=== PATIENT | male | born 2000 | race Two or more races ===

== ENCOUNTER 2022-01-27 23:53 | Emergency (ER) | payer BC, SELFPAY ==
[2022-01-28 00:03] VITALS: BP 119/82; PULSE 87; RESP 16; TEMP 37.2; O2SAT 99; BMI 23.1
--- NOTE | 2022-01-28 00:18 | ED_ITS ---
HPI - Psych General Chief Complaint: Psychiatric Symptoms Stated Complaint: si section 12 Time Seen by Provider: 01/28/22 00:10 Source: patient and EMS Mode of arrival: EMS Limitations: no limitations History of Present Illness HPI Narrative: Patient comes to the emergency room complaining of suicidal ideation. Patient states she has history of depression OCD, states she is compliant with her Wellbutrin. Patient states that earlier today, she was with a friend, patient was looking up on the Internet the lethal dose of acetaminophen. Patient states she has had suicidal ideation in the past, has done minor things to hurt herself such as cutting but nothing serious. Patient denies homicidal ideation. Of note, patient prefers male pronouns and they/them. Related Data Allergies Allergy/AdvReac Type Severity Reaction Status Date / Time No Known Allergies Allergy Verified 01/28/22 00:18 Review of Systems Review of Systems: Constitutional : No Weight loss, No Fever, No Chills, No Night Sweats, No Fatigue, No Malaise ENT/Mouth : No Hearing loss, No Ear Pain, No Nasal Congestion, No Sinus Pain, No Hoarseness, No sore throat, No Rhinorrhea, No Swallowing Difficulty Eyes: No Eye Pain, No Swelling, No Redness, No Foreign Body, No Discharge, No Vision Changes Cardiovascular : No Chest Pain, No SOB, No Dyspnea on Exertion, No Orthopnea, No Edema, No Palpitations Respiratory : No Cough, No Sputum, No Wheezing, No Smoke Exposure, No Dyspnea Gastrointestinal : No Nausea, No Vomiting, No Diarrhea, No Constipation, No abdominal Pain, No Hematochezia, No Melena Genitourinary : no irregular bleeding, No Dysuria, No Urinary Frequency, No Hematuria, No Urinary Incontinence, No Urgency, No Flank Pain, No Urinary Flow Changes, No Hesitancy Musculoskeletal : No joint pain, No Myalgias, No Joint Swelling Skin : No Skin Lesions, No rash Neuro : No Weakness, No Numbness, No Paresthesias, No Loss of Consciousness, No Dizziness, No Headache Psych : Patient denies feeling anxious, complaining of depression, having suicidal thoughts, no homicidal thoughts Heme/Lymph: No Bruising, No Bleeding,No Lymphadenopathy Endocrine : No Polyuria, No Polydipsia, No Temperature Intolerance PMFSH Past Medical History Medical History (Updated 01/28/22 @ 00:48 by Chelly Asencio MD) Major depression OCD (obsessive compulsive disorder) Physical Exam Vital Signs: Vital Signs: Last Vital Signs Temp 909 F H 01/28/22 00:31 Pulse 87 01/28/22 00:31 Resp 16 01/28/22 00:31 BP 119/82 01/28/22 00:31 Pulse Ox 99 01/28/22 00:31 BMI result Body Mass Index 23.1 Const: Other: Appearance: Alert. Oriented X3. No acute distress. Eyes: Pupils equal, round and reactive to light. ENT: Pharynx normal. Neck: Normal inspection. Neck supple. No lymph nodes noted. No crepitus CVS: Normal heart rate and rhythm. Pulses normal. Normal S1 and S2 Respiratory: No respiratory distress. Breath sounds normal. No Wheezing. No rales Abdomen: Soft and nontender. No rigidity. No distention. Skin: Skin warm and dry. Normal skin color. Normal skin turgor. Extremities: No lower extremity edema. No Lacerations. No Rash Neuro: Oriented X 3. No motor deficit. No sensory deficit. Moving all extremities. No slurred speech. CN 2 through 12 grossly intact Psych: calm, cooperative, normal affect Course Course Course Narrative: Behavioral health network consult pending. Physician observation started at 00:30 [facility] - Psych Lab Data Labs: Lab Results 01/28/22 01/28/22 Range/Units 00:26 00:26 Urine Color YELLOW Urine Appearance CLOUDY Urine pH 6.0 (5.0-8.0) Ur Specific [place] >= 1.030 H (1.005-1.025) Urine Protein NEG (NEG-TRACE) MG/DL Urine Glucose (UA) NEG (NEG) MG/DL Urine Ketones 5 (NEG) MG/DL Urine Blood NEG (NEG) Urine Nitrite NEG (NEG) Ur Leukocyte Esterase TRACE H (NEG) Urine RBC 0-2 (0) /HPF Urine WBC 5-9 H (0-4) /HPF Ur Squamous Epith Cells 3+ /LPF Urine Bacteria TRACE /LPF Urine Mucus 3+ /LPF Urine Test NEGATIVE (NEGATIVE) Discharge Plan Discharge Clinical Impression: Suicidal ideation Patient Disposition: Still a Patient
[2022-01-28 00:31] VITALS: BP 119/82; PULSE 87; RESP 16; TEMP 487.2; TEMP 909; O2SAT 99; BMI 23.1
[2022-01-28 00:34] LABS: Appearance Urine CLOUDY; Color Urine YELLOW; Glucose Urine UA NEG (NEG); Leukocyte Esterase Urine TRACE (NEG); Nitrite Urine NEG (NEG); Specific Gravity - Urine >= 1.030 (1.005-1.025); UACC Culture Trigger YES; Urine Blood NEG (NEG); Urine Ketones 5 MG/DL (NEG); Urine Protein NEG (NEG-TRACE)
[2022-01-28 00:36] LABS: UPreg QC Valid YES; Urine Pregnancy NEGATIVE (NEGATIVE)
[2022-01-28 00:42] LABS: Bacteria Urine TRACE /LPF; Mucus Urine 3+ /LPF; RBC Urine 0-2 /HPF (0); Squamous Epithelial Cell Urine 3+ /LPF
[2022-01-28 00:46] LABS: COVID-19 Test Negative (Negative)
[2022-01-28 01:04] LABS: Amphetamine Screen Urine Not Detected (Not Detect); Barbiturates, Urine Not Detected (Not Detect); Benzodiazepines Screen Urine Not Detected (Not Detect); Cannabinoid Screen Urine Not Detected (Not Detect); Cocaine Screen Urine Not Detected (Not Detect); Fentanyl, urine Not Detected (Not Detect); Opiate Screen Urine Not Detected (Not Detect); Phencyclidine Screen Urine Not Detected (Not Detect)
--- NOTE | 2022-01-28 05:18 | PC.ADMIT ---
PT brought in by EMS from [facility] due to SI with plan to OD on APAP. PT denies SI/HI and feels safe on unit. PT is being monitored by staff. PT is calm and cooperative answering questions appropriately.
--- NOTE | 2022-01-28 07:28 | PC.NURSE ---
patient appears to remain asleep at present, respirations are even and unlabored patient appears in no distress
--- NOTE | 2022-01-28 07:49 | PC.NURSE ---
Teri Hollis, Psychologist from [facility], would like to be contacted by [facility] when they come to evaluate the patient. She can be reached at [phone].
[2022-01-28] MEDS: buPROPion HCl XL 300 MG TAB.ER.24H PO (11:50)
== END 2022-01-28 17:07 | disposition other institution (70) ==
PROVIDERS: Emergency Provider Emergency Medicine
DX: F33.1 Major depressive disorder, recurrent, moderate (principal); R45.851 Suicidal ideations; Z20.822 Contact with and (suspected) exposure to COVID-19; Z79.899 Other long term (current) drug therapy
CPT/HCPCS: 80307; 81001; 81025; 87086; 87635; 99284

== ENCOUNTER 2023-01-01 19:04 | Inpatient (IN) | payer BC, SELFPAY ==
[2023-01-01 19:27] VITALS: BP 133/90; PULSE 84; RESP 16; TEMP 36.7; O2SAT 100; BMI 22.3
--- OUTSIDE RECORDS SUMMARY | 2023-01-01 19:50 | XMS_ITS | Continuity of Care Document ---
:2000 Author Organization [facility] nt Inpatient Psychiatry Address [address] [place] [address]- Care Team Providers Name Role Phone Not on Staff, PCP Primary Care Physician Unavailable [place] [facility] [place]): 01/28/22 - 02/07/22 [facility] Inpatient Psychiatry [address] [place] [address]- Discharge Disposition: A-D/C Home Attending Physician: Ghassan Garcia MD Admitting Physician: Ghassan Garcia MD Referring Physician: Not on Staff, Referring MD Allergies, Adverse Reactions, Alerts No Known Allergies Medications sertraline 100 mg oral tablet See Instructions, 1 and 1/2 tablets by mouth in am (Total daily dose of 150 mg), # 45 tablet, 0 Refills, Maintenance, 02/07/22 9:13:00 EDT, Tablet, [id number], Partial fill upon patient requestif the prescription is for a schedule II opioid... Start Date: 02/07/22 Status: Orderedtestosterone 20.25 mg/1.25 g (1.62%) transdermal gel 1 pack/packet, Topically, Daily in AM, 0 Refills, Maintenance, 01/29/22 14:01:00 EDT, Gel, Partial fill upon patient request if the prescription is for a schedule II opioid drug. Start Date: 01/29/22 Status: Ordered Vital Signs Most recent to oldest 1 2 3 4 [Reference Range]: Height 166 cm 166 cm 166 cm (02/07/22 9:57 AM) (02/06/22 10:21 PM) (02/06/22 9:36 AM) Weight 60.4 kg 59.6 kg (02/04/22 1:12 PM) (01/28/22 7:07 PM) Oxygen Saturation 100 % 100 % 97 % [94-100 %] (02/07/22 9:57 AM) (02/06/22 10:21 PM) (02/06/22 9:36 AM) Pulse Rate [55-90 84 bpm 77 bpm 78 bpm bpm] (02/07/22 9:57 AM) (02/06/22 10:21 PM) (02/06/22 9:36 AM) Body Mass Index 21.63 [18.5-24.99] (01/28/22 7:07 PM) Blood Pressure 113/85 mm Hg 114/56 mm Hg 99/56 mm Hg [90-138/55-84 mm Hg] (02/07/22 9:57 AM) (02/06/22 10:21 PM) (02/06/22 9:36 AM) Respiratory Rate 16 br/min 16 br/min 16 br/min 16 br/min [16-30 br/min] (02/07/22 9:57 AM) (02/07/22 9:57 AM) (02/06/22 10:21 P M) (02/06/22 10:21 PM) Temperature 97.5 DegF 97.7 DegF 97.3 DegF [96.8-100.4 DegF] (02/07/22 9:57 AM) (02/06/22 10:21 PM) (02/06/22 9:3 6 AM) Mode of Delivery Room air Room air Room air (Oxygen) (02/07/22 9:57 AM) (02/06/22 10:21 PM) (02/06/22 9:36 AM) Blood pressure sites Arm, left Arm, left Arm, left (02/07/22 9:57 AM) (02/06/22 10:21 PM) (02/06/22 9:36 AM) Temperature Route Temporal Oral Temporal (02/07/22 9:57 AM) (02/06/22 10:21 PM) (02/06/22 9:36 AM) Dry Weight 59.6 kg (01/28/22 7:07 PM) Weight Obtained Via Standing scale Standing scale (02/04/22 1:12 PM) (01/28/22 7:07 PM) Dry Weight Obtained Standing scale Via (01/28/22 7:07 PM)
[2023-01-01 19:57] LABS: MANUAL DIFF FLAG NO
[2023-01-01 19:59] LABS: Basophils Absolute Auto 0.1 X10*3/uL (0.0-0.2); Basophils Percent Auto 0.7 % (0-2); Eosinophils Absolute Auto 0.8 X10*3/uL (0.0-0.4); Eosinophils Percent Auto 12.3 % (0-4); Hematocrit 44.6 % (42.0-52.0); Hemoglobin 14.2 g/dl (14.0-18.0); Imm Gran Abs Auto 0.01 X10*3/uL (0.00-0.03); Imm Gran Pct Auto 0.1 % (0.0-0.4); Lymphocytes Absolute Auto 1.8 X10*3/uL (1.2-4.9); Lymphocytes Percent Auto 26.8 % (20-40); Mean Corpuscular HGB Conc 31.8 g/dl (31.0-36.0); Mean Corpuscular Hemoglobin 28.2 pg (27.0-33.0); Mean Corpuscular Volume 88.5 fL (80.0-98.0); Mean Platelet Volume 10.3 fL (9.4-12.4); Monocytes Absolute Auto 0.4 X10*3/uL (0.1-1.2); Monocytes Percent Auto 6.3 % (2-11); Neutrophils Absolute Auto 3.7 x10*3/uL (2.0-8.3); Neutrophils Percent Auto 53.8 % (45-73); Platelet Count 282 X10*3/uL (160-400); Red Blood Count 5.04 X10*6/uL (4.60-5.80); Red Cell Distribution Width 13.9 % (11.0-16.0); White Blood Count 6.8 X10*3/uL (4.8-10.8)
[2023-01-01 20:06] LABS: Appearance Urine Clear; Color Urine Yellow; Glucose Urine UA Negative (Negative); Leukocyte Esterase Urine Trace (Negative); Nitrite Urine Negative (Negative); PH 6.5 (5.0-9.0); Specific Gravity - Urine >= 1.030 (1.005-1.025); UMIC TRIGGER UA YES; Urine Blood Negative (Negative); Urine Ketones Trace mg/dL (Negative); Urine Protein Trace mg/dL (Neg-Trace)
[2023-01-01 20:08] LABS: Amphetamine Screen Urine Not Detected (Not Detect); Barbiturates, Urine Not Detected (Not Detect); Benzodiazepines Screen Urine Not Detected (Not Detect); Cannabinoid Screen Urine Not Detected (Not Detect); Cocaine Screen Urine Not Detected (Not Detect); Fentanyl, urine Not Detected (Not Detect); Opiate Screen Urine Not Detected (Not Detect); Phencyclidine Screen Urine Not Detected (Not Detect)
[2023-01-01 20:14] LABS: Acetaminophen LAB < 17 mcg/mL (<30); Alanine Aminotransferase 10 U/L (0-40); Albumin Level 4.7 g/dL (3.5-5.0); Alkaline Phosphatase 115 U/L (39-117); Anion Gap 13 (12-20); Aspartate Amino Transferase 19 U/L (5-37); Bilirubin Total 0.4 mg/dL (0.0-1.0); Blood Urea Nitrogen 12 mg/dL (9-16); Calcium 9.3 mg/dL (8.4-10.2); Carbon Dioxide 25 mmol/L (22-29); Chloride 106 mmol/L (96-108); Creatinine Clr Calc Pharmacy 122.8; Estimated Glomerular Filt Rate > 60; Ethanol < 10 mg/dL; Glucose Random 72 mg/dL (60-115); Potassium 3.8 mmol/L (3.3-5.1); Salicylate < 5.0 mg/dL (15-30); Sodium 140 mmol/L (135-145); Total Protein 7.7 g/dL (6.5-8.0)
--- NOTE | 2023-01-01 21:25 | PC.NURSE ---
Addendum entered by Rober Diamond 01/01/23 22:16: Pt contact - Yelitza Santizo - Counselor at [facility] - [phone] Original Note: Pt contact - Yelitza Santizo - Counselor at [facility] - [phone]
[2023-01-01 22:39] LABS: Bacteria Urine None Seen (None Seen); Hyaline Casts Urine 0-2 /LPF (0-2); RBC Urine 0-2 /HPF (0-2); Squamous Epithelial Cell Urine 0-2 /HPF (0-2)
--- NOTE | 2023-01-01 23:23 | ED_ITS ---
HPI - Psych General Chief Complaint: Psychiatric Symptoms Stated Complaint: [id number] Time Seen by Provider: 01/01/23 19:46 History of Present Illness HPI Narrative: Patient is a 22-year-old transgender self identified male. Presented today with having thoughts of wanting to kill himself. Question by cutting. Question by overdose. Patient denies taking any overdose. [place] stresses in life. Denies any recreational drug use Related Data Home Medications Medication Instructions Recorded Confirmed bupropion HCl 300 mg 24 hr tablet, 300 mg PO DAILY 01/28/22 01/28/22 extended release fluvoxamine 150 mg 150 mg PO BEDTIME 01/28/22 01/28/22 capsule,extended release 24 hr melatonin 5 mg PO BEDTIME 01/28/22 01/28/22 testosterone 75 g topical DAILY 01/28/22 01/28/22 testosterone (AndroGel) 1 pump topical DAILY 01/28/22 01/28/22 Allergies Allergy/AdvReac Type Severity Reaction Status Date / Time No Known Allergies Allergy Verified 01/28/22 00:18 Review of Systems Review of Systems: Positive suicidal ideation Yes all other systems are reviewed and are negative [facility] Past Medical History Attestation statement: The following information was validated with the patient. Medical History Major depression OCD (obsessive compulsive disorder) Social History Social History Alcohol intake: current Alcohol intake frequency: a few times a month Alcohol type: beer, wine and hard liquor Smoked in Last 30 Days: No Use of substances other than those prescribed or required for medical reasons: Yes Substance Use Type: Marijuana Substance Use Frequency: Occasionally Last Used Substance: Weeks (ago) Any prior treatment program specific to substance use: No Advance Directives: No Advance Directives Information Provided: No Healthcare Proxy: No Guardian: No Physical Exam Vital Signs: Vital Signs: Last Vital Signs Temp 98.1 F 01/01/23 19:27 Pulse 84 01/01/23 19:27 Resp 16 01/01/23 19:27 BP 133/90 H 01/01/23 19:27 Pulse Ox 100 01/01/23 19:27 O2 Del Method 01/01/23 19:27 BMI result Body Mass Index 22.3 Appearance: Alert. Oriented X3. No acute distress. Eyes: Pupils equal, round and reactive to light. ENT: Pharynx normal. Neck: Normal inspection. Neck supple. No lymph nodes noted. No crepitus CVS: Normal heart rate and rhythm. Pulses normal. Normal S1 and S2 Respiratory: No respiratory distress. Breath sounds normal. No Wheezing. No rales Abdomen: Soft and nontender. No rigidity. No distention. good BS x4 Skin: Skin warm and dry. Normal skin color. Normal skin turgor. Extremities: No lower extremity edema. Neurovascular intact to all extremities. No Lacerations. No Rash Neuro: Oriented X 3. No motor deficit. No sensory deficit. Moving all extermities. No slurred speech. Cranial nerves intact Medical Decision Making Medical Decision Making [facility] Narrative: Well-appearing no distress patient identified positive suicidal ideation with plans of potentially cutting himself. Currently awaiting crisis evaluation. Patient medically cleared Lab Data [facility] Lab Attestation statement: I reviewed the patient's lab results. 01/01/23 19:53 01/01/23 19:53 Labs: Lab Results 01/01/23 01/01/23 01/01/23 Range/Units 19:52 19:52 19:53 WBC 6.8 (4.8-10.8) X10*3/uL RBC 5.04 (4.60-5.80) X10*6/uL Hgb 14.2 (14.0-18.0) g/dl Hct 44.6 (42.0-52.0) % MCV 88.5 (80.0-98.0) fL MCH 28.2 (27.0-33.0) pg MCHC 31.8 (31.0-36.0) g/dl RDW 13.9 (11.0-16.0) % Plt Count 282 (160-400) X10*3/uL MPV 10.3 (9.4-12.4) fL Immature Gran % (Auto) 0.1 (0.0-0.4) % Neut % (Auto) 53.8 (45-73) % Lymph % (Auto) 26.8 (20-40) % Maries % (Auto) 6.3 (2-11) % Eos % (Auto) 12.3 H (0-4) % Baso % (Auto) 0.7 (0-2) % Lymph # (Auto) 1.8 (1.2-4.9) X10*3/uL Maries # (Auto) 0.4 (0.1-1.2) X10*3/uL Eos # (Auto) 0.8 H (0.0-0.4) X10*3/uL Baso # (Auto) 0.1 (0.0-0.2) X10*3/uL Abs Immat Gran (auto) 0.01 (0.00-0.03) X10*3/uL Absolute Neuts (auto) 3.7 (2.0-8.3) x10*3/uL Absolute Nucleated RBC 0.000 (0.0-0.012) X10*3/uL Nucleated RBC % (auto) 0.0 (0.0-0.2) /100WBC Sodium (135-145) mmol/L Potassium (3.3-5.1) mmol/L Chloride (96-108) mmol/L Carbon Dioxide (22-29) mmol/L Anion Gap (12-20) BUN (9-16) mg/dL Creatinine (0.5-1.4) mg/dL Estim Creat Clear Calc Estimated GFR Random Glucose (60-115) mg/dL Calcium (8.4-10.2) mg/dL Total Bilirubin (0.0-1.0) mg/dL AST (5-37) U/L ALT (0-40) U/L Alkaline Phosphatase (39-117) U/L Total Protein (6.5-8.0) g/dL Albumin (3.5-5.0) g/dL Urine Color Yellow Urine Appearance Clear Urine pH 6.5 (5.0-9.0) Ur Specific [place] >= 1.030 H (1.005-1.025) Urine Protein Trace (Neg-Trace) mg/dL Urine Glucose (UA) Negative (Negative) mg/dL Urine Ketones Trace (Negative) mg/dL Urine Blood Negative (Negative) Urine Nitrite Negative (Negative) Ur Leukocyte Esterase Trace H (Negative) Urine RBC 0-2 (0-2) /HPF Urine WBC 6-10 H (0-5) /HPF Ur Squamous Epith Cells 0-2 (0-2) /HPF Urine Bacteria None Seen (None Seen) Hyaline Casts 0-2 (0-2) /LPF Salicylates (15-30) mg/dL Urine Opiates Screen Not Detected (Not Detect) Urine Fentanyl Screen Not Detected (Not Detect) Acetaminophen (<30) mcg/mL Ur Barbiturates Screen Not Detected (Not Detect) Ur Phencyclidine Scrn Not Detected (Not Detect) Ur Amphetamines Screen Not Detected (Not Detect) U Benzodiazepines Scrn Not Detected (Not Detect) Urine Cocaine Screen Not Detected (Not Detect) U Marijuana (THC) Screen Not Detected (Not Detect) Ethyl Alcohol mg/dL 01/01/23 Range/Units 19:53 WBC (4.8-10.8) X10*3/uL RBC (4.60-5.80) X10*6/uL Hgb (14.0-18.0) g/dl Hct (42.0-52.0) % MCV (80.0-98.0) fL MCH (27.0-33.0) pg MCHC (31.0-36.0) g/dl RDW (11.0-16.0) % Plt Count (160-400) X10*3/uL MPV (9.4-12.4) fL Immature Gran % (Auto) (0.0-0.4) % Neut % (Auto) (45-73) % Lymph % (Auto) (20-40) % Maries % (Auto) (2-11) % Eos % (Auto) (0-4) % Baso % (Auto) (0-2) % Lymph # (Auto) (1.2-4.9) X10*3/uL Maries # (Auto) (0.1-1.2) X10*3/uL Eos # (Auto) (0.0-0.4) X10*3/uL Baso # (Auto) (0.0-0.2) X10*3/uL Abs Immat Gran (auto) (0.00-0.03) X10*3/uL Absolute Neuts (auto) (2.0-8.3) x10*3/uL Absolute Nucleated RBC (0.0-0.012) X10*3/uL Nucleated RBC % (auto) (0.0-0.2) /100WBC Sodium 140 (135-145) mmol/L Potassium 3.8 (3.3-5.1) mmol/L Chloride 106 (96-108) mmol/L Carbon Dioxide 25 (22-29) mmol/L Anion Gap 13 (12-20) BUN 12 (9-16) mg/dL Creatinine 0.80 (0.5-1.4) mg/dL Estim Creat Clear Calc 122.8 Estimated GFR > 60 Random Glucose 72 (60-115) mg/dL Calcium 9.3 (8.4-10.2) mg/dL Total Bilirubin 0.4 (0.0-1.0) mg/dL AST 19 (5-37) U/L ALT 10 (0-40) U/L Alkaline Phosphatase 115 (39-117) U/L Total Protein 7.7 (6.5-8.0) g/dL Albumin 4.7 (3.5-5.0) g/dL Urine Color Urine Appearance Urine pH (5.0-9.0) Ur Specific [place] (1.005-1.025) Urine Protein (Neg-Trace) mg/dL Urine Glucose (UA) (Negative) mg/dL Urine Ketones (Negative) mg/dL Urine Blood (Negative) Urine Nitrite (Negative) Ur Leukocyte Esterase (Negative) Urine RBC (0-2) /HPF Urine WBC (0-5) /HPF Ur Squamous Epith Cells (0-2) /HPF Urine Bacteria (None Seen) Hyaline Casts (0-2) /LPF Salicylates < 5.0 L (15-30) mg/dL Urine Opiates Screen (Not Detect) Urine Fentanyl Screen (Not Detect) Acetaminophen < 17 (<30) mcg/mL Ur Barbiturates Screen (Not Detect) Ur Phencyclidine Scrn (Not Detect) Ur Amphetamines Screen (Not Detect) U Benzodiazepines Scrn (Not Detect) Urine Cocaine Screen (Not Detect) U Marijuana (THC) Screen (Not Detect) Ethyl Alcohol < 10 mg/dL Discharge Plan Discharge Clinical Impression: Depression, Acute anxiety Patient Disposition: Still a Patient Prescriptions: No Action fluvoxamine 150 mg Capsule,Extended Release 24hr 150 mg PO BEDTIME bupropion HCl 300 mg Tablet Extended Release 24 Hr 300 mg PO DAILY melatonin 5 mg PO BEDTIME testosterone foam 75 g topical DAILY testosterone [AndroGel] 20.25 mg/1.25 gram (1.62 %) Gel In Metered-Dose Pump 1 pump TOPICAL DAILY Rx Instructions: apply 1 pump amount over max area of ONE upper arm and shoulder Interventions: [place]-Suicide Risk Severity Scale Last Done: 01/01/23 20:05
--- NOTE | 2023-01-02 07:01 | PC.NURSE ---
assumed care of patient, pt resting comfortably bed, VSS, sec [address], bed search in progress
[2023-01-02 07:06] VITALS: BP 107/74; PULSE 87; RESP 16; TEMP 36.4; O2SAT 99
[2023-01-02 08:12] LABS: COVID-19 Test Negative (Negative); IDNOW Serial# 9DB6401D
--- NOTE | 2023-01-02 10:59 | MHC.CARE ---
Spoke with Juarez Rene @ [facility], who took mbr info and diagnosis and hospital location/ NPI, requested t/w fax clinical and gave reference of [id number] and reports no further clinical needed and insurance reviewer will reach out to the tunit for follow up
--- NOTE | 2023-01-02 11:05 | PHA.MEDREC ---
Pharmacy Consult ? Medication Reconciliation Pharmacy has completed the medication reconciliation. Pt seems to be good historian and was able to tell me names and doses of medications he is on.
--- NOTE | 2023-01-02 16:14 | MHC.CARE ---
Bed search has been completed today / Referral faxed to Pam @ [facility]. / The bed search is currently exhausted. / Care Team will follow up.
[2023-01-02 21:26] VITALS: BP 107/63; PULSE 61; RESP 18; TEMP 36.3; O2SAT 99
[2023-01-03 01:49] VITALS: BP 114/68; PULSE 89; RESP 15; TEMP 36.9; O2SAT 99
--- NOTE | 2023-01-03 06:05 | PC.NURSE ---
Patient slept through the night, no distress observed/reported, behavior non concerning, med rec completed/pending provider's approval, disposition per care team is section 12 inpatient bed search, will continue to monitor.
--- NOTE | 2023-01-03 07:24 | PC.NURSE ---
patient appears to remain asleep at present respirations are even and unlabored patient appears in no distress.
[2023-01-03] MEDS: Escitalopram Oxalate 10 MG TABLET PO (10:21)
[2023-01-03 10:38] VITALS: BP 149/79; PULSE 84; RESP 15; TEMP 36.8; O2SAT 98
[2023-01-03 11:01] LABS: COVID-19 Test Negative (Negative); IDNOW Serial# BCCEAD1C
--- NOTE | 2023-01-03 11:27 | PC.NURSE ---
assumed care of pt at 1100, pt resting in common room, pending CARE team eval/bed search.
--- NOTE | 2023-01-03 14:27 | PC.NURSE ---
RN-RN report given to [facility]
--- NOTE | 2023-01-03 17:59 | PC.NURSE ---
[facility] contacted re collecting pt, stated they would be down shortly.
[2023-01-03 18:00] VITALS: BP 168/73; PULSE 68; RESP 16; TEMP 36.6; O2SAT 98
[2023-01-03 18:48] VITALS: BMI 22.3
--- NOTE | 2023-01-03 22:09 | PC.ADMIT ---
Pt is a 22years old female to male transgender individual who is admitted on CV for SI with a plan to OD on his prescribed medications. Pt was brought in for assessment by EMS after Pt reported SI to oncology physician clinician. Pt was assessed and deemed to benefit from IPLOC. Pt is alert and oriented, VSS, Covid negative, Tox screen negative. He likes to be called [place] . Pt is calm and cooperative. Speech is normal with regular, rhythm and tone. Pt reports low depression and SI. He denies HI with plan and intent. Pt denies AH/VH. He reports that he has no PCP at this time since he is transitioning from Pediatric care. Pt reports he is immunized this flu season and therefore refused flu shot. Pt prefers to be addressed with HE/HIM . Admission orders obtained.
[2023-01-04] MEDS: Escitalopram Oxalate 10 MG TABLET PO (09:00)
[2023-01-04 09:17] LABS: Estimated Average Glucose 100 mg/dL; Hemoglobin A1c % 5.1 %
[2023-01-04 09:32] LABS: Cholesterol 131 mg/dL; HDL Cholesterol 35 mg/dL; LDL Cholesterol Calculated 81 mg/dl; Triglycerides 78 mg/dL
--- NOTE | 2023-01-04 10:00 | ECG_ITS ---
Test Reason : qtc check Blood Pressure : / mmHG Vent. Rate : 068 BPM Atrial Rate : 068 BPM P-R Int : 128 ms QRS Dur : 086 ms QT Int : 382 ms P-R-T Axes : 000 081 046 degrees QTc Int : 406 ms Normal sinus rhythm Normal ECG No previous ECGs available Referred By: Tiara Pérez Electronically Signed By:MATT MUÑOZ MD
[2023-01-04 10:01] LABS: Folate 11.2 ng/mL (> or = 4.0); Free T4 (Free Thyroxine) 0.67 ng/dL (0.71-1.85); Thyroid Stimulating Hormone 0.93 uIU/mL (0.32-4.0); Vitamin B12 669 pg/mL (200-900)
--- NOTE | 2023-01-04 10:32 | P.HPPS_ITS ---
HPI Date of Service: 01/04/23 Chief Complaint: Recurrent major depression Sources of Information: patient interviewed and crisis/core team assessment reviewed HPI Subjective Notes: Garcia Warning and Conditional Voluntary Narrative: Patient is a 22-year-old transgender FTM, [employer] student with history of depression, OCD presents for worsening depression and suicidal ideation with plan to overdose. Patient reports that he was doing overall okay on Zoloft back in October; Zoloft was changed to Lexapro since even on this medication patient was still having bouts of severe depression. Patient reports that in November and into December his depression started to worsen; he has chronic SI however it became more intense and he started to develop a plan to overdose on medication, going as far as absconding with some of his grandmother's blood pressure medication; patient figured suicide attempt would not work anyway so he self pre sented. He denies history of trauma; denies AVH, denies drug or alcohol abuse. Patient however does endorse some limited history of potentially hypomanic episodes, last 1 over spring break wear for 3 days he needed little sleep, had high energy, heads of bizarre delusional thoughts about being part Dragon and went on a request to buy himself car to drive to [place]... Afterwards he realized that his Dragon thoughts were delusional and buying a car was unrealistic. This lasted for 3 days and afterwards he became very depressed. Patient endorses OCD history and says that he gets intrusive thoughts about hurting other people sexually; this is ego dystonic any does not want to hurt anyone at all; he tries to attenuate these thoughts by blinking his eyes thinking that a physical act might help get rid of the mental 1 though this really works. Patient reports that these intrusive thoughts interfere with studying and make it difficult to concentrate and lectures. Patient says that once Zoloft got to about 200 mg the OCD symptoms seem to get better and he could shake them off sooner. 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 Substance History: Denies Trauma History: Denies Diagnostics Vital Signs (24Hr): Vital Signs - 24 hr 01/03/23 10:38 01/03/23 18:00 Temperature 98.2 F 97.8 F Pulse Rate 84 68 Respiratory Rate 15 16 Blood Pressure 149/79 H 168/73 H Pulse Oximetry 98 98 Oxygen Delivery Method Room Air Room Air BMI result Body Mass Index 22.3 Labs 01/01/23 19:53 01/01/23 19:53 Labs: Laboratory Results - last 48 hr 01/03/23 01/04/23 01/04/23 10:26 08:16 08:16 Estimat Average Glucose 100 Hemoglobin A1c % 5.1 Magnesium 2.0 Triglycerides 78 Cholesterol 131 LDL Cholesterol, Calc 81 HDL Cholesterol 35 Vitamin B12 669 Folate 11.2 TSH 0.93 Free T4 0.67 L COVID-19 (BILLIE) Negative COVID-19 Clin Com See Note Meds/Allergies Meds Home Medications Medication Instructions Recorded Confirmed Type atomoxetine 60 mg capsule 60 mg PO DAILY 01/02/23 01/02/23 History (Strattera) escitalopram oxalate 10 mg tablet 10 mg PO DAILY 01/02/23 01/02/23 History (Lexapro) testosterone cypionate 200 mg/mL 0.25 ml IM HERNANDEZ 01/02/23 01/02/23 History intramuscular oil (Depo-Testosterone) Allergies Allergies Allergy/AdvReac Type Severity Reaction Status Date / Time No Known Allergies Allergy Verified 01/02/23 06:02 Mental Status Exam Mental Status Exam Narrative: Pt is alert and oriented; behavior is cooperative, calm; patient is not in distress; dressed in casual attire with groomed hair and adequate hygiene; mood is described as depressed and affect congruent; eye contact appropriate; Speech is normal rate, volume and prosody and not pressured; some psychomotor retardation present; thought process is organized and goal directed; Thought content is on ambivalent about living, tx; otherwise pertinent to relevant topics and without any delusional content, paranoid ideations or grandiosity; SI the lessening; no HI. There is no evidence of perceptual disturbance. Patients insight and judgment are impaired Assessment & Plan Assessment & Plan (1) Bipolar II disorder: Status: Acute Code(s): F31.81 - Bipolar II disorder (2) OCD (obsessive compulsive disorder): Status: Acute Code(s): F42.9 - Obsessive-compulsive disorder, unspecified Plan Patient is a 22-year-old transgender FTM [employer] student with history of depression, OCD presents for worsening depression and suicidal ideation with plan to overdose. -patient reports SI has lessened since coming to the unit -it seems most likely that recently triggered bout of worsening depression was triggered by discontinuing Zoloft to getting on Lexapro; however well Zoloft may have been helping with OCD, he reports that on Zoloft patient continued to have depressive episodes lasting up to a week. Patient endorses what sounds like hypomanic episodes and thus possibly bipolar depression; will make provisional diagnosis. He agrees to mood stabilizing medication and will start with Abilify for now; also discussed potentially starting Lamictal which can help with bipolar depression as well as OCD. Patient agrees to getting back on Zoloft. Plan: CV Q 15 minute checks Discontinue Lexapro (started 3 weeks ago) Restart Zoloft and titrate back to previous dose; reports started helping with OCD Start Abilify 2 mg daily for mood stabilization; will likely titrate Will consider Lamictal for help with mood stabilization as well as OCD Patient educated on: diagnosis and medication risk/benefits Informed Consent: understands Reason for continued inpatient stay Substantial Risk for: rapid decompensation Statement Statement: I have reviewed the history and physical and performed a pertinent examination on my patient. No changes have occurred unless specified. If the History and Physical was not performed prior to admission, the Hospitalist's service will be consulted for completing the admission physical. Time Spent With Patient Time: Total time managing care of this patient today ____ minutes.
[2023-01-04 11:11] VITALS: BP 118/79; PULSE 80; RESP 14; TEMP 36.8
[2023-01-04 20:58] VITALS: BP 128/84; PULSE 74; RESP 18; TEMP 36.1; O2SAT 99
[2023-01-04] MEDS: ARIPiprazole 2 MG TABLET PO (20:58)
[2023-01-05 07:00] VITALS: BMI 21.7
[2023-01-05 08:40] VITALS: BP 115/75; PULSE 94; RESP 16; TEMP 36.9; O2SAT 98
[2023-01-05] MEDS: ARIPiprazole 2 MG TABLET PO (08:44)
[2023-01-05] MEDS: Sertraline HCL 50 MG TABLET PO (08:44)
--- NOTE | 2023-01-05 12:24 | P.PNPSI_ITS ---
Subjective Subjective Date of Service: 01/05/23 Reason For Visit: Recurrent major depression Interim History: Met with patient; discussed with team; discussed again with social work msw after communication with the therapist at school Patient reports that he is feeling better. He says depression is mostly resolved and SI completely resolved. He also denies having intrusive OCD type thoughts. He is not sure why he is feeling better but he is grateful for. Patient agrees to continue with Abilify and denies any side effects; he also agrees to continue titrating Zoloft which he thinks should get back to 200 mg as soon as possible. Patient said he has discussed things with his family who remains supportive. He is hoping to discharge early next week. Discussed patient's struggles with school; he thinks that once OCD and depressive thoughts are better dull with hell be able to concentrate more on school. compound worker discussed case with school therapist who had some concerns about patient being discharged too soon. Therapist cites history of pt being discharged in December 2021 and quickly readmitted, then discharged in January 2022. That said, Review of history shows that otherwise, patient has a about 5 months in between psychiatric admissions, demonstrating his ability to remain stable (January 2022 to June 2022 to December 2022). Director Of Sustainability agrees that patient is currently undergoing a lot of changes in his life, including transitioning FTM, being away from home, dealing with college-level school work and managing his chronic depression and OCD and that these combined stressors are probably a lot to handle. And that it will likely take time and therapy for patient to mature to the point where he is able to successfully juggle these complicated life events. After discussing case with team, it is customs entry writer's opinion that there is no way to accelerate this process with medications or a longer inpatient stay; rather it is an issue that will need to be worked out over time and with outpatient providers who have a rapport with patient and can help him navigate. And while it is also possible that patient's full diagnosis has not yet been completely understood, this patient is only 22 years old and fully understanding his diagnosis is also something that cannot be rushed, but may take time, even years, before it is more clear. Diagnostics Vital Signs (24Hr): Vital Signs - 24 hr 01/04/23 20:58 01/05/23 08:40 Temperature 97.0 F 98.4 F Pulse Rate 74 94 Respiratory Rate 18 16 Blood Pressure 128/84 115/75 Pulse Oximetry 99 98 Oxygen Delivery Method Room Air Room Air BMI result Body Mass Index 22.3 Labs 01/01/23 19:53 01/01/23 19:53 Labs: Laboratory Results - last 48 hr 01/04/23 01/04/23 08:16 08:16 Estimat Average Glucose 100 Hemoglobin A1c % 5.1 Magnesium 2.0 Triglycerides 78 Cholesterol 131 LDL Cholesterol, Calc 81 HDL Cholesterol 35 Vitamin B12 669 Folate 11.2 TSH 0.93 Free T4 0.67 L Medications Medications Current Medications Acetaminophen (Acetaminophen 325 Mg Tablet) 650 mg PO Q6H PRN PRN Reason: Headache/Pain Mild Scale (1-3) Al Hydroxide/Mg Hydroxide (Magnesium Hydrox/Alum Hydrox 30 Ml Oral.Susp) 30 ml PO Q6H PRN PRN Reason: Heartburn/Nausea Aripiprazole (Aripiprazole 2 Mg Tablet) 2 mg PO DAILY [facility] Last Admin: 01/05/23 08:44 Dose: 2 mg Hydroxyzine HCl (Hydroxyzine Hcl 25 Mg Tablet) 25 mg PO Q6H PRN PRN Reason: Anxiety Magnesium Hydroxide (Milk Of Magnesia 30 Ml Oral.Susp) 30 ml PO DAILY PRN PRN Reason: Constipation Non-Formulary Medication (Atomoxetine [Strattera]) 60 mg PO DAILY [facility] Non-Formulary Medication (Testosterone Cypionate) 0.25 ml IM HERNANDEZ [facility] Pharmacy Consult (Consult Rx Perform Med Rec) 1 each MISCELLANE ONCE PRN PRN Reason: Consult order Sertraline HCl (Sertraline Hcl 50 Mg Tablet) 50 mg PO DAILY [facility] Last Admin: 01/05/23 08:44 Dose: 50 mg Trazodone HCl (Trazodone Hcl 50 Mg Tablet) 50 mg PO BEDTIME MRX1 PRN PRN Reason: Insomnia Allergies Allergies Allergy/AdvReac Type Severity Reaction Status Date / Time No Known Allergies Allergy Verified 01/02/23 06:02 Assessment & Plan Assessment & Plan (1) Bipolar II disorder: Status: Acute Code(s): F31.81 - Bipolar II disorder (2) OCD (obsessive compulsive disorder): Status: Acute Code(s): F42.9 - Obsessive-compulsive disorder, unspecified Plan Patient is a 22-year-old transgender [employer] student with history of depression, OCD presents for worsening depression and suicidal ideation with plan to overdose. -patient reports SI has lessened since coming to the unit -it seems most likely that recently triggered bout of worsening depression was triggered by discontinuing Zoloft to getting on Lexapro; however well Zoloft may have been helping with OCD, he reports that on Zoloft patient continued to have depressive episodes lasting up to a week. Patient endorses what sounds like hypomanic episodes and thus possibly bipolar depression; will make provisional diagnosis. He agrees to mood stabilizing medication and will start with Abilify for now; also discussed potentially starting Lamictal which can help with bipolar depression as well as OCD. Patient agrees to getting back on Zoloft. initial formulation: At this time will continue with bipolar diagnosis however it will remain provisional as there is some hesitancy to give full diagnosis. compound worker discussed case with school therapist who had some concerns about patient being discharged too soon. Therapist cites history of pt being discharged in January 02 and quickly readmitted, then discharged in January 2022. That said, Review of history shows that otherwise, patient has a about 5 months in between psychiatric admissions, demonstrating his ability to remain stable (January 2022 to June 2022 to December 2022). Director Of Sustainability agrees that patient is currently undergoing a lot of changes in his life, including transitioning FTM, being away from home, dealing with college-level school work and managing his chronic depression and OCD and that these combined stressors are probably a lot to handle. And that it will likely take time and therapy for patient to mature to the point where he is able to successfully juggle these complicated life events. After discussing case with team, it is customs entry writer's opinion that there is no way to accelerate this process with medications or a longer inpatient stay; rather it is an issue that will need to be worked out over time and with outpatient providers who have a rapport with patient and can help him navigate. And while it is also possible that patient's full diagnosis has not yet been completely understood, this patient is only 22 years old and fully understanding his diagnosis is also something that cannot be rushed, but may take time, even years, before it is more clear. Hospital course: 01/05 patient reports his mood is better and depression mostly gone; affect is noticeably brighter. Patient also says SI is fully resolved. He is not sure why but is grateful for; he agrees that it may just have been the stress of getting back to school (of note, patient's psychiatric admissions seem to happen after either winter break or summer break). That said, he is happy with the Abilify wants to continue. Would like Zoloft to continue being titrated. Plan: CV Q 15 minute checks Discontinue Lexapro (started 3 weeks ago) Titrate Zoloft to 75 mg and back to previous dose; reports started helping with OCD Continue Abilify 2 mg daily for mood stabilization; will likely titrate Will consider Lamictal for help with mood stabilization as well as OCD Patient educated on: diagnosis and medication risk/benefits Informed Consent: understands Reason for contiued inpatient stay Substantial Risk for: rapid decompensation Time Spent With Patient Time: Total time managing care of this patient today ____ minutes.
[2023-01-05 18:00] VITALS: BP 126/76; PULSE 78; RESP 14; TEMP 36.6
[2023-01-06] MEDS: ARIPiprazole 2 MG TABLET PO (08:16)
[2023-01-06] MEDS: Sertraline HCL 25 MG TABLET 75 MG PO (08:16)
[2023-01-06 08:29] VITALS: BP 116/75; PULSE 85; RESP 18; TEMP 36.7; O2SAT 100
--- NOTE | 2023-01-06 10:35 | P.PNPSI_ITS ---
Subjective Subjective Date of Service: 01/06/23 Reason For Visit: Recurrent major depression Interim History: met with patient; discussed with team pt reports feeling better and that depressive symptoms and SI remain resolved; pt has had some intrusive OCD thoughts and would like Zoloft to be further titrated, but says today, he's been able to work through them. Discussed pattern of hospitalizations that seem to occur soon after pt returns to school from some break; he found this interesting and will think more about it. Also discussed reaching out for help when feeling suicidal and pt says love for his family is a strong protective factor for him and that it has kept him from self harm despite chronic SI. Talked about this stage of his life, all the things he's dealing with and that it wont' always be this tumultuous as he continues to mature. Pt feels he'll be able to return to school and resume studies; he's not sure however if he'll be able to make up course work. talked about cannabis and how it may be interfering w/ stability, to which pt agrees and will stop using Mental Status Exam Mental Status Exam Narrative: Pt is alert and oriented; behavior is cooperative, calm; patient is not in distress; dressed in casual attire with groomed hair and adequate hygiene; mood is described as better and affect congruent; eye contact appropriate; Speech i s normal rate, volume and prosody and not pressured; no psychomotor retardation present; thought process is organized and goal directed; Thought content is on treatment, school; otherwise pertinent to relevant topics and without any delusional content, paranoid ideations or grandiosity;no SI; no HI. There is no evidence of perceptual disturbance. Patients insight and judgment are fair. Diagnostics Vital Signs (24Hr): Vital Signs - 24 hr 01/05/23 18:00 01/06/23 08:29 Temperature 98 F 98.1 F Pulse Rate 78 85 Respiratory Rate 14 18 Blood Pressure 126/76 116/75 Pulse Oximetry 100 Oxygen Delivery Method Room Air BMI result Body Mass Index 21.7 Labs 01/01/23 19:53 01/01/23 19:53 Medications Medications Current Medications Acetaminophen (Acetaminophen 325 Mg Tablet) 650 mg PO Q6H PRN PRN Reason: Headache/Pain Mild Scale (1-3) Al Hydroxide/Mg Hydroxide (Magnesium Hydrox/Alum Hydrox 30 Ml Oral.Susp) 30 ml PO Q6H PRN PRN Reason: Heartburn/Nausea Aripiprazole (Aripiprazole 2 Mg Tablet) 2 mg PO DAILY [facility] Last Admin: 01/06/23 08:16 Dose: 2 mg Hydroxyzine HCl (Hydroxyzine Hcl 25 Mg Tablet) 25 mg PO Q6H PRN PRN Reason: Anxiety Magnesium Hydroxide (Milk Of Magnesia 30 Ml Oral.Susp) 30 ml PO DAILY PRN PRN Reason: Constipation Non-Formulary Medication (Atomoxetine [Strattera]) 60 mg PO DAILY [facility] Non-Formulary Medication (Testosterone Cypionate) 0.25 ml IM HERNANDEZ [facility] Pharmacy Consult (Consult Rx Perform Med Rec) 1 each MISCELLANE ONCE PRN PRN Reason: Consult order Sertraline HCl (Sertraline Hcl 25 Mg Tablet) 75 mg PO DAILY [facility] Last Admin: 01/06/23 08:16 Dose: 75 mg Trazodone HCl (Trazodone Hcl 50 Mg Tablet) 50 mg PO BEDTIME MRX1 PRN PRN Reason: Insomnia Allergies Allergies Allergy/AdvReac Type Severity Reaction Status Date / Time No Known Allergies Allergy Verified 01/02/23 06:02 Assessment & Plan Assessment & Plan (1) Bipolar II disorder: Status: Acute Code(s): F31.81 - Bipolar II disorder (2) OCD (obsessive compulsive disorder): Status: Acute Code(s): F42.9 - Obsessive-compulsive disorder, unspecified Plan Patient is a 22-year-old transgender [employer] student with history of depression, OCD presents for worsening depression and suicidal ideation with plan to overdose. -patient reports SI has lessened since coming to the unit -it seems most likely that recently triggered bout of worsening depression was triggered by discontinuing Zoloft to getting on Lexapro; however well Zoloft may have been helping with OCD, he reports that on Zoloft patient continued to have depressive episodes lasting up to a week. Patient endorses what sounds like hypomanic episodes and thus possibly bipolar depression; will make provisional diagnosis. He agrees to mood stabilizing medication and will start with Abilify for now; also discussed potentially starting Lamictal which can help with bipolar depression as well as OCD. Patient agrees to getting back on Zoloft. initial formulation: At this time will continue with bipolar diagnosis however it will remain provi sional as there is some hesitancy to give full diagnosis. mortar worker discussed case with school therapist who had some concerns about patient being discharged too soon. Therapist cites history of pt being discharged in December 2021 and quickly readmitted, then discharged in January 2022. That said, Review of history shows that otherwise, patient has a about 5 months in between psychiatric admissions, demonstrating his ability to remain stable (January 2022 to June 2022 to December 2022). Greenhouse Technician agrees that patient is currently undergoing a lot of changes in his life, including transitioning FTM, being away from home, dealing with college-level school work and managing his chronic depression and OCD and that these combined stressors are probably a lot to handle. And that it will likely take time and therapy for patient to mature to the point where he is able to successfully juggle these complicated life events. After discussing case with team, it is marketing writer's opinion that there is no way to accelerate this process with medications or a longer inpatient stay; rather it is an issue that will need to be worked out over time and with outpatient providers who have a rapport with patient and can help him navigate. And while it is also possible that patient's full diagnosis has not yet been completely understood, this patient is only 22 years old and fully understanding his diagnosis is also something that cannot be rushed, but may take time, even years, before it is more clear. Hospital course: 01/05 patient reports his mood is better and depression mostly gone; affect is noticeably brighter. Patient also says SI is fully resolved. He is not sure why but is grateful for; he agrees that it may just have been the stress of getting back to school (of note, patient's psychiatric admissions seem to happen after either winter break or summer break). That said, he is happy with the Abilify wants to continue. Would like Zoloft to continue being titrated. 01/06 pt continues to stabilize; depression/SI resolved, mood improved. Still w /some OCD symptoms and will further titrate Zoloft. Team in discussion with therapy services at school; to make sure pt is able to remain stable on return, staff at school is working to set up more extensive, wrap around services. Plan: CV Q 15 minute checks Discontinue Lexapro (started 3 weeks ago) Titrate Zoloft to 100 mg and back to previous dose; reports started helping with OCD Continue Abilify 2 mg daily for mood stabilization; will likely titrate Will consider Lamictal for help with mood stabilization as well as OCD Patient educated on: diagnosis, medication risk/benefits, substance abuse and therapeutic strategies Informed Consent: understands Reason for contiued inpatient stay Substantial Risk for: med/psych decompensation Time Spent With Patient Time: Total time managing care of this patient today ____ minutes.
[2023-01-06 20:54] VITALS: BP 128/68; PULSE 97; RESP 16; TEMP 36.6; O2SAT 97
[2023-01-07 06:00] VITALS: BP 121/81; PULSE 85; RESP 16; TEMP 37.6; O2SAT 100
[2023-01-07] MEDS: Sertraline HCL 100 MG TABLET PO (09:35)
[2023-01-07] MEDS: ARIPiprazole 2 MG TABLET PO (09:35)
--- NOTE | 2023-01-07 16:27 | HO.PSYCHPN ---
Subjective Subjective Date of Service: 01/07/23 Reason For Visit: Recurrent major depression Interim History: Review with team. Nanda reports feeling well. Visable in milieu with peers Tolerating recent titration of Sertraline. Medication Compliance: Yes Side effects from medications: No Attending Groups: Yes Review of Systems Acute medical concerns: No Medical Review of Systems: unchanged Mental Status Exam Mental Status Exam Patient Appearance: Appropriate Patient Orientation: Person, Place, Time and Situation Level of Consciousness: Alert Patient Behavior: Talkative and Good Eye Contact Mood Description: Appropriate and Anxious Affect Description: Appropriate and Anxious Patient Cognition Impaired: No Ability to Follow Directions: Good Speech Pattern: Spontaneous Speech Memory Description: Intact Hallucinations: None Delusions: Not Present Thought Process: Intact Thought Content: positive for Intact Judgement: Fair Diagnostics Vital Signs (24Hr): Vital Signs - 24 hr 01/06/23 20:54 01/07/23 06:00 Temperature 97.8 F 99.6 F Pulse Rate 97 85 Respiratory Rate 16 16 Blood Pressure 128/68 121/81 Pulse Oximetry 97 100 Oxygen Delivery Method Room Air Room Air BMI result Body Mass Index 21.7 Labs 01/01/23 19:53 01/01/23 19:53 Medications Medications Current Medications Acetaminophen (Acetaminophen 325 Mg Tablet) 650 mg PO Q6H PRN PRN Reason: Headache/Pain Mild Scale (1-3) Al Hydroxide/Mg Hydroxide (Magnesium Hydrox/Alum Hydrox 30 Ml Oral.Susp) 30 ml PO Q6H PRN PRN Reason: Heartburn/Nausea Aripiprazole (Aripiprazole 2 Mg Tablet) 2 mg PO DAILY [facility] Last Admin: 01/07/23 09:35 Dose: 2 mg Hydroxyzine HCl (Hydroxyzine Hcl 25 Mg Tablet) 25 mg PO Q6H PRN PRN Reason: Anxiety Magnesium Hydroxide (Milk Of Magnesia 30 Ml Oral.Susp) 30 ml PO DAILY PRN PRN Reason: Constipation Non-Formulary Medication (Atomoxetine [Strattera]) 60 mg PO DAILY [facility] Non-Formulary Medication (Testosterone Cypionate) 0.25 ml IM HERNANDEZ [facility] Pharmacy Consult (Consult Rx Perform Med Rec) 1 each MISCELLANE ONCE PRN PRN Reason: Consult order Sertraline HCl (Sertraline Hcl 100 Mg Tablet) 100 mg PO DAILY [facility] Trazodone HCl (Trazodone Hcl 50 Mg Tablet) 50 mg PO BEDTIME MRX1 PRN PRN Reason: Insomnia Allergies Allergies Allergy/AdvReac Type Severity Reaction Status Date / Time No Known Allergies Allergy Verified 01/02/23 06:02 Assessment & Plan Assessment & Plan (1) Bipolar II disorder: Status: Acute Code(s): F31.81 - Bipolar II disorder (2) OCD (obsessive compulsive disorder): Status: Acute Code(s): F42.9 - Obsessive-compulsive disorder, unspecified Plan Patient is a 22-year-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 -patient reports SI has lessened since coming to the unit -it seems most likely that recently triggered bout of worsening depression was triggered by discontinuing Zoloft to getting on Lexapro; however well Zoloft may have been helping with OCD, he reports that on Zoloft patient continued to have depressive episodes lasting up to a week. Patient endorses what sounds like hypomanic episodes and thus possibly bipolar depression; will make provisional diagnosis. He agrees to mood stabilizing medication and will start with Abilify for now; also discussed potentially starting Lamictal which can help with bipolar depression as well as OCD. Patient agrees to getting back on Zoloft. initial formulation: At this time will continue with bipolar diagnosis however it will remain provisional as there is some hesitancy to give full diagnosis. supervisor hand workers discussed case with school therapist who had some concerns about patient being discharged too soon. Therapist cites history of pt being discharged in December 2021 and quickly readmitted, then discharged in January 2022. That said, Review of history shows that otherwise, patient has a about 5 months in between psychiatric admissions, demonstrating his ability to remain stable (January 2022 to June 2022 to December 2022). Tool Shaper Setup Operator agrees that patient is currently undergoing a lot of changes in his life, including transitioning FTM, being away from home, dealing with college-level school work and managing his chronic depression and OCD and that these combined stressors are probably a lot to handle. And that it will likely take time and therapy for patient to mature to the point where he is able to successfully juggle these complicated life events. After discussing case with team, it is tag writer's opinion that there is no way to accelerate this process with medications or a longer inpatient stay; rather it is an issue that will need to be worked out over time and with outpatient providers who have a rapport with patient and can help him navigate. And while it is also possible that patient's full diagnosis has not yet been completely understood, this patient is only 22 years old and fully understanding his diagnosis is also something that cannot be rushed, but may take time, even years, before it is more clear. Hospital course: 01/05 patient reports his mood is better and depression mostly gone; affect is noticeably brighter. Patient also says SI is fully resolved. He is not sure why but is grateful for; he agrees that it may just have been the stress of getting back to school (of note, patient's psychiatric admissions seem to happen after either winter break or summer break). That said, he is happy with the Abilify wants to continue. Would like Zoloft to continue being titrated. 01/06 pt continues to stabilize; depression/SI resolved, mood improved. Still w /some OCD symptoms and will further titrate Zoloft. Team in discussion with therapy services at school; to make sure pt is able to remain stable on return, staff at school is working to set up more extensive, wrap around services. 01/07/23 Continue current regime. Plan: CV Q 15 minute checks Discontinue Lexapro (started 3 weeks ago) Titrate Zoloft to 100 mg and back to previous dose; reports started helping with OCD Continue Abilify 2 mg daily for mood stabilization; will likely titrate Will consider Lamictal for help with mood stabilization as well as OCD Informed Consent: understands Reason for contiued inpatient stay Substantial Risk for: rapid decompensation Time Spent With Patient Time: Total time managing care of this patient today ____ minutes.
[2023-01-07 18:00] VITALS: BP 124/68; PULSE 68; RESP 16; TEMP 36.6; O2SAT 99
[2023-01-08 08:26] VITALS: BP 140/76; PULSE 71; RESP 14; TEMP 36.8; O2SAT 98
[2023-01-08] MEDS: ARIPiprazole 2 MG TABLET PO (08:35)
[2023-01-08] MEDS: Sertraline HCL 100 MG TABLET PO (08:36)
[2023-01-08] MEDS: hydrOXYzine HCL 25 MG TABLET PO (17:23)
[2023-01-08 19:30] VITALS: BP 112/68; PULSE 78; RESP 16; TEMP 36.6; O2SAT 99
--- NOTE | 2023-01-08 19:30 | HO.PSYCHPN ---
Subjective Subjective Date of Service: 01/08/23 Reason For Visit: Recurrent major depression Interim History: Visable in milieu Review with team/nursing Reports no issues or concerns today. Tolerating regime and finding it effective, without SE Side effects from medications: No Attending Groups: Yes Review of Systems Acute medical concerns: No Medical Review of Systems: unchanged Mental Status Exam Mental Status Exam Patient Appearance: Appropriate Patient Orientation: Person, Place, Time and Situation Level of Consciousness: Alert Patient Behavior: Talkative and Good Eye Contact Mood Description: Appropriate and Anxious Affect Description: Appropriate and Anxious Patient Cognition Impaired: No Ability to Follow Directions: Good Speech Pattern: Spontaneous Speech Memory Description: Intact Hallucinations: None Delusions: Not Present Thought Process: Intact Thought Content: positive for Intact Judgement: Fair Diagnostics Vital Signs (24Hr): Vital Signs - 24 hr 01/08/23 08:26 Temperature 98.2 F Pulse Rate 71 Respiratory Rate 14 Blood Pressure 140/76 H Pulse Oximetry 98 Oxygen Delivery Method Room Air BMI result Body Mass Index 21.7 Labs 01/01/23 19:53 01/01/23 19:53 Medications Medications Current Medications Acetaminophen (Acetaminophen 325 Mg Tablet) 650 mg PO Q6H PRN PRN Reason: Headache/Pain Mild Scale (1-3) Al Hydroxide/Mg Hydroxide (Magnesium Hydrox/Alum Hydrox 30 Ml Oral.Susp) 30 ml PO Q6H PRN PRN Reason: Heartburn/Nausea Aripiprazole (Aripiprazole 2 Mg Tablet) 2 mg PO DAILY [facility] Last Admin: 01/08/23 08:35 Dose: 2 mg Hydroxyzine HCl (Hydroxyzine Hcl 25 Mg Tablet) 25 mg PO Q6H PRN PRN Reason: Anxiety Last Admin: 01/08/23 17:23 Dose: 25 mg Magnesium Hydroxide (Milk Of Magnesia 30 Ml Oral.Susp) 30 ml PO DAILY PRN PRN Reason: Constipation Non-Formulary Medication (Atomoxetine [Strattera]) 60 mg PO DAILY [facility] Non-Formulary Medication (Testosterone Cypionate) 0.25 ml IM HERNANDEZ [facility] Pharmacy Consult (Consult Rx Perform Med Rec) 1 each MISCELLANE ONCE PRN PRN Reason: Consult order Sertraline HCl (Sertraline Hcl 100 Mg Tablet) 100 mg PO DAILY [facility] Last Admin: 01/08/23 08:36 Dose: 100 mg Trazodone HCl (Trazodone Hcl 50 Mg Tablet) 50 mg PO BEDTIME MRX1 PRN PRN Reason: Insomnia Allergies Allergies Allergy/AdvReac Type Severity Reaction Status Date / Time No Known Allergies Allergy Verified 01/02/23 06:02 Assessment & Plan Assessment & Plan (1) Bipolar II disorder: Status: Acute Code(s): F31.81 - Bipolar II disorder (2) OCD (obsessive compulsive disorder): Status: Acute Code(s): F42.9 - Obsessive-compulsive disorder, unspecified Plan Patient is a 22-year-old transgender FTM [employer] student with history of depression, OCD presents for worsening depression and suicidal ideation with plan to overdose. -patient reports SI has lessened since coming to the unit -it seems most likely that recently triggered bout of worsening depression was triggered by discontinuing Zoloft to getting on Lexapro; however well Zoloft may have been helping with OCD, he reports that on Zoloft patient continued to have depressive episodes lasting up to a week. Patient endorses what sounds like hypomanic episodes and thus possibly bipolar depression; will make provisional diagnosis. He agrees to mood stabilizing medication and will start with Abilify for now; also discussed potentially starting Lamictal which can help with bipolar depression as well as OCD. Patient agrees to getting back on Zoloft. initial formulation: At this time will continue with bipolar diagnosis however it will remain provisional as there is some hesitancy to give full diagnosis. auto body worker discussed case with school therapist who had some concerns about patient being discharged too soon. Therapist cites history of pt being discharged in December 2021 and quickly readmitted, then discharged in January 2022. That said, Review of history shows that otherwise, patient has a about 5 months in between psychiatric admissions, demonstrating his ability to remain stable (January 2022 to June 2022 to December 2022). Supervisor Photostat agrees that patient is currently undergoing a lot of changes in his life, including transitioning FTM, being away from home, dealing with college-level school work and managing his chronic depression and OCD and that these combined stressors are probably a lot to handle. And that it will likely take time and therapy for patient to mature to the point where he is able to successfully juggle these complicated life events. After discussing case with team, it is gag writer's opinion that there is no way to accelerate this process with medications or a longer inpatient stay; rather it is an issue that will need to be worked out over time and with outpatient providers who have a rapport with patient and can help him navigate. And while it is also possible that patient's full diagnosis has not yet been completely understood, this patient is only 22 years old and fully understanding his diagnosis is also something that cannot be rushed, but may take time, even years, before it is more clear. Hospital course: 01/05 patient reports his mood is better and depression mostly gone; affect is noticeably brighter. Patient also says SI is fully resolved. He is not sure why but is grateful for; he agrees that it may just have been the stress of getting back to school (of note, patient's psychiatric admissions seem to happen after either winter break or summer break). That said, he is happy with the Abilify wants to continue. Would like Zoloft to continue being titrated. 01/06 pt continues to stabilize; depression/SI resolved, mood improved. Still w /some OCD symptoms and will further titrate Zoloft. Team in discussion with therapy services at school; to make sure pt is able to remain stable on return, staff at school is working to set up more extensive, wrap around services. 01/07/23 Continue current regime. 01/08/23 Continue current regime Plan: CV Q 15 minute checks Discontinue Lexapro (started 3 weeks ago) Titrate Zoloft to 100 mg and back to previous dose; reports started helping with OCD Continue Abilify 2 mg daily for mood stabilization; will likely titrate Will consider Lamictal for help with mood stabilization as well as OCD Informed Consent: understands Reason for contiued inpatient stay Substantial Risk for: rapid decompensation Time Spent With Patient Time: Total time managing care of this patient today ____ minutes.
[2023-01-09 08:08] VITALS: BP 121/77; PULSE 80; RESP 16; TEMP 36.9; O2SAT 100
[2023-01-09] MEDS: ARIPiprazole 2 MG TABLET PO (08:38)
[2023-01-09] MEDS: Sertraline HCL 100 MG TABLET PO (08:38)
--- NOTE | 2023-01-09 10:40 | P.DS_ITS ---
DS: Providers Provider Date of Service: 01/09/23 Date of admission: 01/03/23 15:23 Date of discharge: 01/09/23 Primary care physician: Unknown Physician Attending physician on admission: Crow Guzman Attending physician on discharge: Crow Guzman DS: Diagnosis Discharge Diagnosis (1) Bipolar II disorder: Status: Acute (2) OCD (obsessive compulsive disorder): Status: Acute DS: Medications Discharge Medications Home Medications: Home Medications Medication Instructions Recorded Confirmed atomoxetine 60 mg capsule 60 mg PO DAILY 01/02/23 01/02/23 (Strattera) testosterone cypionate 200 mg/mL 0.25 ml IM HERNANDEZ 01/02/23 01/02/23 intramuscular oil (Depo-Testosterone) Previous Rx's Medication Instructions Recorded aripiprazole 2 mg tablet (Abilify) 2 mg PO DAILY 30 days #30 tabs 01/09/23 sertraline 100 mg tablet See Rx Instructions .Route 01/09/23 .COMPLEX 30 days #42 tabs sertraline 100 mg tablet (Zoloft) 150 mg PO DAILY 30 days #45 tabs 01/09/23 Mental Status Exam Mental Status Exam Narrative: Pt is alert and oriented; behavior is cooperative, calm; patient is not in distress; dressed in casual attire with groomed hair and adequate hygiene; mood is described as good and affect congruent; eye contact appropriate; Speech is normal rate, volume and prosody and not pressured; no psychomotor retardation present; thought process is organized and goal directed; Thought content is on treatment, school; otherwise pertinent to relevant topics and without any delusional content, paranoid ideations or grandiosity;no SI; no HI. There is no evidence of perceptual disturbance. Patients insight and judgment are fair. Data Data Completed and Pending Completed studies during hospitalization [Text1]: 01/03/23 01/04/23 01/04/23 10:26 08:16 08:16 Estimat Average Glucose 100 Hemoglobin A1c % 5.1 Magnesium 2.0 Triglycerides 78 Cholesterol 131 LDL Cholesterol, Calc 81 HDL Cholesterol 35 Vitamin B12 669 Folate 11.2 TSH 0.93 Free T4 0.67 L COVID-19 ([facility]LLIE) Negative COVID-19 Clin Com See Note DS: Summary Hospital Course Hospital Course: HPI: Patient is a 22-year-old transgender [employer] student with history of depression, OCD presents for worsening depression and suicidal ideation with plan to overdose. -patient reports SI has lessened since coming to the unit -it seems most likely that recently triggered bout of worsening depression was triggered by discontinuing Zoloft to getting on Lexapro; however well Zoloft may have been helping with OCD, he reports that on Zoloft patient continued to have depressive episodes lasting up to a week.? Patient endorses what sounds like hypomanic episodes and thus possibly bipolar depression; will make provisional diagnosis.? He agrees to mood stabilizing medication and will start with Abilify for now; also discussed potentially starting Lamictal which can help with bipolar depression as well as OCD.? Patient agrees to getting back on Zoloft. initial formulation: At this time will continue with bipolar diagnosis however it will remain provisional as there is some hesitancy to give full diagnosis. electroplating worker discussed case with school therapist who had some concerns about patient being discharged too soon. Therapist cites history of pt being discharged in December 2021 and quickly readmitted, then discharged in January 2022. That said, Review of history shows that otherwise, patient has a about 5 months in between psychiatric admissions, demonstrating his ability to remain stable (January 2022 to June 2022 to December 2022).? Band Builder agrees that patient is currently undergoing a lot of changes in his life, including transitioning FTM, being away from home, dealing with college-level school work and managing his chronic depression and OCD and that these combined stressors are probably a lot to handle. And that it will likely take time and therapy for patient to mature to the point where he is able to successfully juggle these complicated life events. After discussing case with team, it is securities underwriter's opinion that there is no way to accelerate this process with medications or a longer inpatient stay; rather it is an issue that will need to be worked out over time and with outpatient providers who have a rapport with patient and can help him navigate. And while it is also possible that patient's full diagnosis has not yet been completely understood, this patient is only 22 years old and fully understanding his diagnosis is also something that cannot be rushed, but may take time, even years, before it is more clear. Hospital course: On admission, patient was depressed but SI had resolved. He was restarted on Zoloft and then also started on Abilify for mood stability. Very soon patient improved, depression fully abated and SI remained fully resolved. Patient's affect was noticeably brighter and he reported he felt back to his regular self. Patient had some mild OCD symptoms and wanted Zoloft further titrated however these were able to be ignored. Patient asked for discharge, feeling ready to return to school, eager to get back to his course work. He hopes to be able to complete his classes however plan to take a medical leave of absence if need be, after talking with professors. Throughout his time in the unit patient remained in good behavioral and impulse control; is appropriate with peers and staff. Patient had returned to baseline. He was not in imminent risk for harm to self or others and his request for discharge honored. Time spent discussing smoking cessation with patient: 3 to 10 minutes Status at Discharge Functional status at discharge: independent ambulation Overall status at discharge: patient is back to baseline Time Spent with Patient Time attestation: Total time managing care of this patient today ____ minutes. Time spent: Less than 30 minutes Discharge Plan Discharge Anticipated Discharge Date/Time: 01/09/23 11:30 Patient Disposition: Home, Self-Care Discharge Diagnosis: Bipolar II (Provisional dx) Referrals: [facility] [place] [Other] - 01/11/23 3:30 am [place] [place] for you. ) [facility] [Other] - 1 Day [place] [place] you and her to meet. Please call her to make a follow up appointment. ) [facility] Jono Negrete [Other] - 1 Week (Contact Jono regarding class standing, as needed. ) Medication Prescriber Fatmata Peterson [Other] - 01/18/23 1:30 pm (Telehealth) Physician,Unknown J [Primary Care Provider] - 1 Week Discharge Medications: New aripiprazole [Abilify] 2 mg Tablet 2 mg PO DAILY 30 Days Qty: 30 1RF sertraline 100 mg Tablet See Rx Instructions .ROUTE .COMPLEX 30 Days Qty: 42 0RF Rx Instructions: take 1 tab daily for 7 days, then take 1.5 tabs daily sertraline [Zoloft] 100 mg tablet 150 mg PO DAILY 30 Days Qty: 45 0RF Rx Instructions: Do not fill until 01/01/23 Continued testosterone cypionate [Depo-Testosterone] 200 mg/mL oil 0.25 ml IM HERNANDEZ atomoxetine [Strattera] 60 mg Capsule 60 mg PO DAILY Discontinued escitalopram oxalate [Lexapro] 10 mg Tablet 10 mg PO DAILY Discharge Orders: Discharge Order (Routine); Ordered 01/09/23 Ordered By: Crow Guzman Diet: Regular diet Activity on Discharge: As tolerated Stand Alone Forms: Patient Portal Discharge page, Community Support Care Plan Goals: Maintain mood and safe behaviors Take medications as prescribed pursue sobriety from [facility] coping skills Continue with outpatient providers and reach out to them as needed Health Concerns: Mood stability and behaviors Plan of Treatment: Follow up with your PCP, psychiatric provider and other outpatient providers regarding above concerns Take medications as prescribed Assessment: Risk assessment at time of discharge:? Patient was interviewed prior to discharge and found to be fully oriented and without any SI or HI. Patient has insight and demonstrates good judgment in terms of wanting to pursue treatment. Patient is not in imminent risk of harm to self or others and has a safety plan that includes presenting to the closest ER or calling 911 if feeling unsafe.? Patient has been observed closely by nursing and unit staff throughout admission; patient has not engaged in any behaviors that suggest dangerousness to self or others and has demonstrated appropriate behaviors and impulse control Discharge Date/Time: 01/09/23 11:42
== END 2023-01-09 11:42 | disposition home or self-care (01) | DRG 753 ==
LOC: HO.ED 01-03 10:38 → HO.PM5 01-03 15:27
PROVIDERS: Emergency Medicine; Physician Assistant Medical; Admitting Provider Clinical Nurse Specialist Psychiatric/Mental Health, Adult; Emergency Provider Emergency Medicine Emergency Medical Services; Visit Provider Clinical Nurse Specialist Psychiatric/Mental Health, Adult
DX: F31.81 Bipolar II disorder (principal); R45.851 Suicidal ideations; F64.0 Transsexualism; Z20.822 Contact with and (suspected) exposure to COVID-19; F42.9 Obsessive-compulsive disorder, unspecified; Z79.899 Other long term (current) drug therapy
CPT/HCPCS: 36415; 80053; 80061; 80143; 80179; 80307; 81001; 81003; 82077; 82607; 82746; 83036; 83735; 84439; 84443; 85025; 87635; 93005; 99285; S9485